=== PATIENT | male | born 1940 | race Caucasian/White ===

== ENCOUNTER 2019-08-05 16:16 | Outpatient (NON) | payer OTHER, SELFPAY ==
[2019-08-08 13:19] LABS: SARS-CoV-2 RNA PCR Negative
== END 2019-08-05 16:17 ==
DX: Z01.818 Encounter for other preprocedural examination (principal); Z11.59 Encounter for screening for other viral diseases
CPT/HCPCS: 87635; C9803; U0003

== ENCOUNTER 2022-08-10 10:03 | Emergency (ER) | payer BC, SELFPAY ==
[2022-08-10 10:17] VITALS: BP 145/78; PULSE 72; RESP 16; TEMP 37.2; O2SAT 99
--- NOTE | 2022-08-10 10:24 | ED.NAVMDI ---
HPI - Nausea/Vomiting/Diarrhea General Chief complaint: Nausea/Vomiting/Diarrhea Stated complaint: VOMITING/L FLANK TIGHTNESS Time Seen by Provider: 08/10/22 10:24 Source: patient Mode of arrival: ambulatory Limitations: no limitations History of Present Illness HPI Narrative: Patient is an 81-year-old male who presents with nausea, vomiting and left flank pain since last night. Patient states he went to bed and woke up at 10:30 a.m. with pain and vomiting. Patient states co-worker was recently ill with a stomach bug. Patient denies any bright red blood in urine, fever, chills. Has not taken anything for pain. Still reports nausea and decreased appetite but states he is still able to tolerate fluids. Denies history of kidney stones. Related Data Allergies Allergy/AdvReac Type Severity Reaction Status Date / Time No Known Allergies Allergy Unknown . Verified 08/10/22 10:11 Review of Systems Review of Systems: All systems reviewed & are unremarkable except as noted in HPI and below Constitutional: Constitutional: Denies body ache(s), Denies chills, Denies fatigue, Denies fever(s), Denies headache(s), Denies malaise and Denies weakness Eyes: Eyes: Denies blurry vision, Denies irritation and Denies loss of vision ENT: Denies otalgia, Denies headache(s), Denies nasal discharge, Denies sinus pain and Denies sore throat Cardiovascular: Cardiovascular: Denies chest pain, Denies irregular heart rhythm and Denies dyspnea Respiratory: Respiratory: Denies dyspnea Gastrointestinal: Gastrointestinal: Denies abdominal pain, Denies melena, Denies hematochezia, Denies diarrhea, Reports nausea and Reports vomiting Musculoskeletal: Musculoskeletal: Reports back pain, Denies myalgias and Denies arthralgias Integumentary/Breasts: Skin/Breast: Denies pruritus and Denies rash Neurologic: Denies headache(s), Denies loss of vision and Denies weakness Psychiatric: Psychiatric: Reports no additional psychiatric complaints Endocrine: Endocrine: Denies fatigue PMFSH Surgical History Surgical History H/O hernia repair H/O knee surgery H/O shoulder surgery Hx of tonsillectomy Family History Family History (Updated 06/11/19 @ 09:45 by Velvet Solitario CMA) Father Diabetes mellitus Grandparent Diabetes mellitus Social History Social History (Updated 06/11/19 @ 09:46 by Velvet Solitario CMA) Smoking status: Smoker, status unknown Second hand tobacco smoke exposure: No Alcohol intake: current Alcohol use details: 1 beer a month Comments At time of signature, agree with nursing past medical, surgical, social and family history. There is no relevant family history pertinent to the presenting complaint. Exam Const: General: cooperative, healthy appearing, comfortable, no acute distress and well nourished Nutritional Appearance: well nourished Orientation/consciousness: patient oriented x3 Limitations: no limitations HENMT: Head: normal to inspection, normocephalic and atraumatic Ears: hearing grossly normal bilaterally and external ears normal Face/Nose/Sinus: Normal external nose present, normal facial exam and face symmetric Face and sinus: normal facial exam and face symmetric Mouth: Yes lip normal Eyes: General: appearance normal, both eyes and all related structures Alignment and Position: alignment normal and position normal Periorbital: periorbital findings normal Eyelids: eyelids normal Pupils: Equal, round and reactive pupils present EOM: EOMs intact bilaterally Neck: Neck: normal visual inspection, full ROM and supple Chest: Chest palpation & inspection: normal inspection of the chest Resp: Effort & Inspection: normal respiratory effort and able to speak in complete sentences Auscultation: clear to auscultation bilaterally Cardio: Rate: regular rate Rhythm: regular rhythm Heart sounds: S1 normal heart sound present and S2 normal heart sound presen
== END 2022-08-10 10:53 | disposition home or self-care (01) ==
PROVIDERS: Emergency Provider Nurse Practitioner Family
DX: R10.9 Unspecified abdominal pain (principal); R11.2 Nausea with vomiting, unspecified; N02.9 Recurrent and persistent hematuria with unspecified morphologic changes
CPT/HCPCS: 81003; 99213; G0463

== ENCOUNTER 2022-08-15 14:35 | Outpatient (CLI) | payer BC, SELFPAY ==
--- NOTE | ~2022-08-15 | CT_ITS ---
EXAMINATION: CT abdomen pelvis wo con DATE: 08/15/2022 11:29 INDICATION: Hematuria. TECHNIQUE: Computed tomography (CT) of the abdomen and pelvis was performed without intravenous contr ast. Automated exposure control and iterative reconstruction technique were employed. The dose-length product was 196.18 mGy-cm. COMPARISON: None. FINDINGS: The visualized portions of the lung bases demonstrate mild atelectasis. No pleural effusion . The heart size is normal. No pericardial effusion. There are cysts in the liver measuring up to 2.2 cm. The spleen, gallbladder, and pancreas are normal. There are masses in the adrenal glands measuri ng up to 2.0 cm on the left measuring low attenuation, consistent with adenomas. Right kidney is norm al. There is a 5 mm stone in left kidney. There is severe left hydronephrosis. There is left hydroure ter. There is a 3 mm stone at left ureterovesicular junction. There are multiple stones in the bladde r measuring up to 2.3 cm. The prostate is severely enlarged. The appendix is normal. There are no dil ated loops of bowel. There are no pathologically enlarged lymph nodes. There is no free intraperitone al fluid. There is lumbar dextroscoliosis scoliosis and severe spondylosis. IMPRESSION: 1. 3 mm stone at left ureterovesicular junction with left hydroureter and severe left hydronephrosis. 2. Severely enlarged prostate with prostate tissue near the left ureteral orifice. 3. Bladder stones. Nonobstructing left kidney stone. Reviewed, dictated and finalized at location [facility]. IMPRESSION: 1. 3 mm stone at left ureterovesicular junction with left hydroureter and sever e left hydronephrosis. 2. Severely enlarged prostate with prostate tissue near the left ureteral orifi ce. 3. Bladder stones. Nonobstructing left kidney stone.
[2022-08-15 15:26] LABS: Basophils Percent Auto 0.1 % (0.2-1.2); Hematocrit 38.7 % (42.0-52.0); Hemoglobin 13.1 g/dL (14.0-18.0); Immature Granulocyte Absolute 0.03 K/mm3 (0.00-0.031); Immature Granulocyte Percent A 0.3 % (0-0.5); Lymphocytes Absolute Auto 0.63 K/mm3 (0.9-3.2); Lymphocytes Percent Auto 6.6 % (18.3-44.2); Mean Corpuscular HGB Conc 33.9 g/dl (32-36); Mean Corpuscular Hemoglobin 31.3 pg (26-34); Mean Corpuscular Volume 92.4 fl (80-100); Mean Platelet Volume 11.1 fl (7.4-10.4); Monocytes Absolute Auto 0.6 K/mm3 (0.1-0.6); Monocytes Percent Auto 6.7 % (2.6-8.5); Neutrophils Absolute Auto 8.3 K/mm3 (1.3-6.7); Neutrophils Percent Auto 86.3 % (45.5-73.1); Platelet Count Result 157 k/mm3 (150-375); Red Blood Count 4.19 M/mm3 (4.6-6.20); Red Cell Distribution Width 12.1 % (11.5-14.5); White Blood Count 9.6 K/mm3 (4.5-10.0)
[2022-08-15 15:40] LABS: Alanine Aminotransferase 25 U/L (6-50); Albumin Level 4.1 g/dL (3.5-5.1); Alkaline Phosphatase 64 U/L (38-126); Anion Gap 7 mmol/L (8-16); Aspartate Amino Transferase 25 U/L (17-59); Bilirubin,Total 1.3 mg/dL (0.2-1.3); Blood Urea Nitrogen 37 mg/dL (9-20); Calcium 8.7 mg/dL (8.4-10.2); Carbon Dioxide 25 mmol/L (22-30); Chloride 104 mmol/L (98-107); Estimated Glomerular Filt Rate 42; Glucose 159 mg/dL (65-110); Potassium 4.1 mmol/L (3.4-5.0); Sodium 136 mmol/L (137-145)
== END 2022-08-15 14:36 | disposition home or self-care (01) ==
PROVIDERS: PCP Nurse Practitioner Family; Visit Provider Nurse Practitioner Family
DX: R31.9 Hematuria, unspecified (principal); R10.9 Unspecified abdominal pain; R11.0 Nausea; N13.30 Unspecified hydronephrosis; N40.0 Benign prostatic hyperplasia without lower urinary tract symptoms; R73.01 Impaired fasting glucose; N20.0 Calculus of kidney
CPT/HCPCS: 36415; 74176; 80053; 84153; 85025; G0103

== ENCOUNTER 2022-09-06 14:38 | Outpatient (CLI) | payer BC, SELFPAY ==
--- NOTE | ~2022-09-06 | CT_ITS ---
EXAMINATION: CT abdomen pelvis wo con DATE: 09/06/2022 15:01 INDICATION: Left ureteral stone TECHNIQUE: Computed tomography (CT) of the abdomen and pelvis was performed without intravenous contr ast. Automated exposure control and iterative reconstruction technique were employed. Exam dose: 186 .07 mGy-cm total exam DLP. COMPARISON: 08/15/2022 CT abdomen pelvis FINDINGS: Mild discoid atelectasis or scarring, left lower lobe. The lung bases are clear of infiltra te or consolidation. Borderline heart size. No pericardial or pleural effusion. Occasional hepatic cysts, the largest approximately 2 cm. The gallbladder is present. No bile duct or pancreatic duct dilatation. No pancreatic mass lesion or calcification is detected. Normal splenic size. Approximately 1.5 x 1.9 cm left adrenal hypoattenuating lesion, statistically most likely an adrenal adenoma. The right adrenal gland is unremarkable. Posterior upper pole right renal approximately 1 cm probable cyst. Approximately 3.7 x 5.6 mm lower pole nonobstructing left renal calculus. There is a prominent fluid containing structure measuring up to 3 cm at the left renal hilum which ma y be a large parapelvic cyst; this can be confirmed by CT abdomen examination with IV contrast materi al including delayed views. There is interval resolution of calculus reported at left ureterovesical junction since 08/15/2022. No left ureteral dilatation. There are multiple bladder calcified calculi in the dependent posterior lateral right side of the uri nary bladder. There is severe prostate enlargement, prominently impressing the base of the urinary bl adder. There is moderate diffuse thickening of the urinary bladder wall consistent with bladder outle t obstruction due to prostatomegaly. Normal appendix. No bowel obstruction, bowel wall thickening, pneumatosis or intraperitoneal free air is detected. Normal caliber of the abdominal aorta. No intraperitoneal or retroperitoneal or pelvic mass lesion or adenopathy or ascites. Degenerative changes of the lower thoracic and lumbar spine and bilateral hips. IMPRESSION: Interval resolution of 3 mm calculus previously reported at left ureteral vesicle juncti on since 08/15/2022. No hydroureter or hydronephrosis appears to be present. There is a probable large approximately 3 cm left parapelvic renal cyst Nonobstructing approximately 3.7 x 5.6 mm lower pole left renal calculus Multiple bladder calcified calculi Hepatic and right renal cysts Reviewed, dictated and finalized at [facility]. Reviewed, dictated and finalized at location [facility]. IMPRESSION: Interval resolution of 3 mm calculus previously reported at left u reteral vesicle junction since 08/15/2022. No hydroureter or hydronephrosis appe ars to be present. There is a probable large approximately 3 cm left parapelvic renal cyst Nonobstructing approximately 3.7 x 5.6 mm lower pole left renal calculus Multiple bladder calcified calculi Hepatic and right renal cysts
== END 2022-09-06 14:39 | disposition home or self-care (01) ==
PROVIDERS: PCP Nurse Practitioner Family; Visit Provider Nurse Practitioner
DX: N20.1 Calculus of ureter (principal); N28.1 Cyst of kidney, acquired; K76.9 Liver disease, unspecified; N20.0 Calculus of kidney
CPT/HCPCS: 74176

== ENCOUNTER 2022-12-04 10:50 | Outpatient (CLI) | payer BC, SELFPAY ==
--- NOTE | ~2022-12-04 | CT_ITS ---
EXAMINATION: CT abdomen pelvis wo con DATE: 12/04/2022 11:13 INDICATION: Left ureteral stone TECHNIQUE: Computed tomography (CT) of the abdomen and pelvis was performed without intravenous contr ast. The dose-length product (DLP) was 184.74 mGy-cm. Automated exposure control and iterative recons truction technique were employed. COMPARISON: 09/06/2022 FINDINGS: Minimal dependent atelectasis is present in the lung bases. The heart size is normal. Cysts of the liver measure up to 2.0 cm. The spleen, pancreas, gallbladder, and right adrenal gland are no rmal. There is stable 1.8 cm low-density mass of the left adrenal gland, consistent with an adenoma. There is a 12 mm cyst of the right kidney. There is a 5 mm nonobstructing stone of the left kidney lo wer pole. No stones are identified in the ureters. There is a chronic bladder stone. A 3 mm stone is seen near the right ureterovesicular junction. The prostate is enlarged. No hydronephrosis or hydrour eter. No pathologically enlarged abdominal or pelvic lymph nodes are identified. No free intraperiton eal gas or evidence of bowel obstruction. There is moderate lumbar spondylosis. 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 IMPRESSION: 1. Nonobstructing left nephrolithiasis. 2. Chronic bladder stones. Reviewed, dictated and finalized at location [facility].
== END 2022-12-04 10:51 | disposition home or self-care (01) ==
PROVIDERS: PCP Nurse Practitioner Family; Visit Provider Nurse Practitioner
DX: N21.0 Calculus in bladder (principal); N20.0 Calculus of kidney
CPT/HCPCS: 74176

== ENCOUNTER 2023-05-22 14:18 | Outpatient (CLI) | payer BC, SELFPAY ==
--- NOTE | ~2023-05-22 | CT_ITS ---
EXAMINATION: CT abdomen pelvis wo/w con DATE: 05/22/2023 15:09 INDICATION: Bladder stone. TECHNIQUE: Computed tomography (CT) of the abdomen and pelvis was performed without and with intraven ous contrast using a total of 130 mL Omnipaque-350 intravenous contrast with a double-bolus technique for simultaneous opacification of the renal parenchyma and renal collecting system. Automated exposu re control and iterative reconstruction technique were employed. The dose-length product was 558.64 m Gy-cm. COMPARISON: CT abdomen and pelvis 12/04/2022 FINDINGS: The visualized portions of the lung bases demonstrate mild atelectasis. No pleural effusion. The hear t size is normal. No pericardial effusion. There are cysts in the liver measuring up to 2.0 cm. The g allbladder, spleen, pancreas, and right adrenal gland are normal. There is a 2.1 cm mass in left adre nal gland measuring low-attenuation, consistent with an adenoma. There are cysts in the kidneys measu ring up to 15 mm on the right. There is a 1 mm stone in right kidney. There is a 5 mm stone in left k idney. There are 2.4 cm and 1 mm stones in the bladder. The ureters are well opacified and are normal . The prostate is moderately enlarged. There are no dilated loops of bowel. The appendix is normal. T here are no pathologically enlarged lymph nodes. There is no free intraperitoneal fluid. There is sev ere osteoarthritis of the hips. There is severe lumbar spondylosis. Lumbar dextroscoliosis is noted. IMPRESSION: 1. Bladder stones and kidney stones. Reviewed, dictated and finalized at location [facility]. [employer]
[2023-05-22 14:53] LABS: Estimated Glomerular Filt Rate > 60
== END 2023-05-22 14:19 | disposition home or self-care (01) ==
LOC: ANHIMG 14:19
PROVIDERS: PCP Nurse Practitioner Family; Visit Provider Nurse Practitioner
DX: N21.0 Calculus in bladder (principal); N20.0 Calculus of kidney
CPT/HCPCS: 74178; Q9967

== ENCOUNTER 2023-07-19 09:28 | Emergency (ER) | payer OTHER, BC, SELFPAY ==
--- NOTE | ~2023-07-19 | XR_ITS ---
XR lumbar spine 2-3V 07/19/2023 10:27 Indication: Status post fall. Back pain. Procedure: 3 views lumbar spine Comparison: No prior studies Findings: There is dextroscoliosis centered at L3. There is disc narrowing at all lumbar levels. Ther e is advanced facet hypertrophy at L3-4 through L5-S1. No acute fracture or traumatic malalignment. T here is a coarse calcification in the pelvis of uncertain significance with irregular configuration. Consider correlation with CT for further assessment. Impression: 1: Severe lumbar spondylosis with dextroscoliosis. 2: Coarse spiculated calcification in the pelvis. Cannot exclude bowel abnormality. Consider correlat ion with CT pelvis. Reviewed, dictated and finalized at location B. Impression: 1: Severe lumbar spondylosis with dextroscoliosis. 2: Coarse spiculated calcification in the pelvis. Cannot exclude bowel abnormal ity. Consider correlation with CT pelvis.
--- NOTE | ~2023-07-19 | XR_ITS ---
[XR ribs LT 2V w CXR 2V ] INDICATION: Left rib pain after fall TECHNIQUE: Frontal projection of the upper left ribs, frontal projection of the lower left ribs, obli que projection of all the left ribs, frontal inspiratory chest x-ray for interpretation. FINDINGS: There is an acute left displaced eighth rib fracture. There is an acute nondisplaced left n inth rib fracture. No pneumothorax. There are no soft tissue abnormality seen. The lungs are clear. IMPRESSION: 1: Acute left eighth and ninth rib fractures. Reviewed, dictated and finalized at location B.
[2023-07-19 09:39] VITALS: BP 132/73; PULSE 61; RESP 16; TEMP 36.8; O2SAT 98
--- NOTE | 2023-07-19 09:48 | ED.BACK ---
HPI - Back Pain/Injury General Chief Complaint: Back Pain/Injury Stated Complaint: Fall Injury/ Back Pain Time Seen by Provider: 07/19/23 09:48 Source: patient, RN notes reviewed and old records reviewed Mode of arrival: ambulatory Limitations: no limitations History of Present Illness HPI Narrative: 82-year-old male to [facility] status post fall just prior to arrival. 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 Patient states that he was walking off of the aircraft and on to a small step ladder when he lost his balance and fell approximately 4 ft to the ground. Patient reports striking left mid back on the top of the ladder when falling. Patient denies striking head during fall. Patient reports mild discomfort in left upper lumbar and ribs with palpation. No obvious deformity, no redness or obvious bruising. Patient denies shortness of breath, chest pain, dizziness. patient also denies radiation of pain. Related Data Home Medications Medication Instructions Recorded Confirmed No Home Medications 07/19/23 07/19/23 Allergies Allergy/AdvReac Type Severity Reaction Status Date / Time No Known Allergies Allergy Unknown . Verified 08/15/22 09:18 Review of Systems Review of Systems: All systems reviewed & are unremarkable except as noted in HPI and below Constitutional: Constitutional: Reports no additional constitutional complaints Eyes: Eyes: Reports no additional eye complaints ENT: Reports system reviewed and no additional complaints, except as documented Cardiovascular: Cardiovascular: Reports no additional cardiovascular complaints, Denies chest pain and Denies dyspnea Respiratory: Respiratory: Reports no additional respiratory complaints, Denies cough and Denies dyspnea Gastrointestinal: Gastrointestinal: Reports as per HPI, Denies abdominal pain and Denies fecal incontinence Genitourinary: Genitourinary: Reports as per HPI and Denies urinary incontinence Musculoskeletal: Musculoskeletal: Reports no additional musculoskeletal complaints Neurologic: Reports system reviewed and no additional complaints, except as documented Psychiatric: Psychiatric: Reports no additional psychiatric complaints [facility] Past Medical History Medical History Pseudogout Surgical History Surgical History H/O hernia repair (~1982) H/O knee surgery (~2017) Right patellar repair H/O shoulder surgery (~2007) Right rotator cuff Hx of tonsillectomy Family History Family History Father Diabetes mellitus Grandparent Diabetes mellitus Social History Social History Smoking status: Smoker, status unknown Second hand tobacco smoke exposure: No Alcohol intake: unknown Substance use: never Substance use type: does not use Living arrangements: with family Occupation/Education: occupation 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 There is no relevant family history pertinent to the patient complaint. Exam Const: General: cooperative, healthy appearing, comfortable, no acute distress, alert and well nourished Nutritional Appearance: well nourished Orientation/consciousness: patient oriented x3 Limitations: no limitations HENMT: Head: normal to inspection Ears: external ears normal Face/Nose/Sinus: Normal external nose present, Normal nares present, normal facial exam, No erythema and No edema Face and sinus: normal facial exam, no erythema and no edema Mouth: Yes Normal oral and palatal mucosa present Eyes: Genera
== END 2023-07-19 11:12 | disposition home or self-care (01) ==
PROVIDERS: Emergency Provider Nurse Practitioner Family; PCP Nurse Practitioner Family
DX: S22.42XA Multiple fractures of ribs, left side, initial encounter for closed fracture (principal); W17.89XA Other fall from one level to another, initial encounter; S39.012A Strain of muscle, fascia and tendon of lower back, initial encounter
CPT/HCPCS: 71046; 71100; 72100; 99214; G0463

== ENCOUNTER 2023-09-26 08:06 | Outpatient (RCR) | payer BC, SELFPAY ==
[2023-09-26 08:13] VITALS: BMI 19.5
== END 2023-12-16 11:04 | disposition home or self-care (01) ==
LOC: ANHDMC 08:06
PROVIDERS: PCP Nurse Practitioner Family; Visit Provider Nurse Practitioner Family
DX: R73.03 Prediabetes (principal); Z71.3 Dietary counseling and surveillance
CPT/HCPCS: 97802